=== PATIENT | female | born 1965 | race Caucasian/White ===

== ENCOUNTER → 2018-03-06 | Outpatient (CLI) | payer OTHER | LOC: BRMIMAGING 14:55 | DX: Z12.31 Encounter for screening mammogram for malignant neoplasm of breast (principal) ==

== ENCOUNTER → 2018-03-13 | Outpatient (CLI) | payer OTHER | LOC: BRMIMAGING 09:13 | DX: R92.8 Other abnormal and inconclusive findings on diagnostic imaging of breast (principal) ==